=== PATIENT | female | born 1940 | race Caucasian/White ===

== ENCOUNTER 2024-07-04 12:05 | Outpatient (AMB) | payer MEDICARE, SELFPAY ==
--- NOTE | 2024-07-04 12:08 | HO.NEPHOV_ITS ---
Vital Signs 07/04/24 12:09 Height 5 ft 3 in Weight 233 lb 6 oz BMI 41.3 BP 140/60 H Blood Pressure Location Lt brachial Position Sitting Pulse 76 Pulse Source Pulse Oximeter Pulse Oximetry (%) 96 Oxygen Delivery Method Room Air Intake Visit Reasons: CKD Sane Nurse Required: No Accompanied by: Spouse Allergies clindamycin Allergy (Verified 07/04/24 12:12) Hives Medication List - Last Reconciled 07/04/24 by Ramez Bocanegra MD atorvastatin 40 mg PO DAILY diltiazem HCl ER (Tiadylt ER) 240 mg PO DAILY docusate sodium (Colace) 100 mg PO DAILY PRN furosemide 80 mg PO QAM metoprolol tartrate 25 mg PO BID olmesartan 40 mg PO DAILY sennosides (senna) 8.6 mg PO BEDTIME warfarin 2 mg PO DAILY HPI Comments Details: 83-year-old woman with a history of hypertension and lymphedema has been referred for chronic kidney disease. The recent serum creatinine been around 2.5-2.7 mg/dL. She is on high dose of diuretics including Lasix 80 mg and metolazone 2.5 mg. Since then BUN has increased to 80 and creatinine of 2 point 7 mg/dL and hence this referral. She is atrial fibrillation for which she is on metoprolol and Cardizem. No clinical history of congestive heart failure as per patient. She has chronic lymphedema and has been no improvement with the diuretics. She denies any shortness of breath at rest. No nausea or vomiting. No urinary symptoms. [facility] Medical History (Updated 07/04/24 @ 12:28 by Ramez Bocanegra MD) Bilateral knee pain Sinusitis Low blood potassium Secondary hypercoagulable state Lymphedema Atrial fibrillation Hyperlipidemia Hypertension Surgical History (Updated 07/04/24 @ 12:16 by Estella Dwyer MA) Hx of section S/P D&C (status post dilation and curettage) Family History (Updated 07/04/24 @ 12:15 by Estella Dwyer MA) Father Hypertension Social History (Updated 07/04/24 @ 12:15 by Estella Dwyer MA) Alcohol intake: never Patient Tobacco Use Status: Never used Tobacco Physical Exam Vital Signs: Last Vital Signs Pulse 76 07/04/24 12:09 BP 140/60 H 07/04/24 12:09 Pulse Ox 96 07/04/24 12:09 Oxygen Delivery Method Room Air 07/04/24 12:09 BMI result Body Mass Index 41.3 Const General: comfortable; No acute distress Orientation/consciousness: patient oriented x3 Eyes General: appearance normal, both eyes and all related structures Visual Connors: normal visual connors by confrontation Neck Neck: Yes supple and Yes no JVD Resp Effort & Inspection: normal respiratory effort and respiratory effort not decreased Auscultation: rhonchi Cardio Palpation: no palpable S3 and no palpable S4 Heart sounds: no rubs GI Inspection: Yes normal to inspection Palpation (GI): Soft to palpation Percussion: Yes normal to percussion Auscultation: normal bowel sounds General: Yes no CVA tenderness Back/Spine/Pelvis Back: no CVA tenderness Skin General skin exam: no petechiae and no purpura Neuro General: patient oriented x3 and no focal motor deficits Extrem General: No clubbing and Yes edema (Chronic lymphedema both legs) Results Reviewed Results Reviewed: Labs reviewed Nephrology Results: No Data to Display Assessment & Plan Assessment & Plan (1) Hypertension: Code(s): I10 - Essential (primary) hypertension Category: Medical (2) CKD (chronic kidney disease): Code(s): N18.9 - Chronic kidney disease, unspecified Category: Medical Plan Elderly woman with acute kidney injury superimposed on chronic disease. Acute kidney injury is most likely due to hypoperfusion from high dose of diuretics. No evidence of obstructive uropathy. Other possibilities including glomerular nephritis or interstitial disease should be ruled out. She is underlying chronic kidney disease in the setting of hypertension and atrial fibrillation. There could be age related nephron loss as well. Chronic lymphedema both lower extremities. Atrial fibrillation Recommendations Stay on low-sodium diet. Keep furosemide 80 mg once a day. Discontinue metolazone 5 mg Recheck renal panel in 1-2 weeks. Leg elevation while at rest. Urine studies ordered including urine protein creatinine ratio and serum electrophoresis. Further workup will be based on the clinical outcome and the baseline investigations. . Orders: Orders Basic Metabolic Panel 2 Weeks I10 - Essential (primary) hypertension, N18.9 - Chronic kidney disease, unspecified Total Protein Urine Random 2 Weeks I10 - Essential (primary) hypertension, N18.9 - Chronic kidney disease, unspecified Creatinine Urine 2 Weeks I10 - Essential (primary) hypertension, N18.9 - Chronic kidney disease, unspecified Protein Electrophoresis, Serum 2 Weeks I10 - Essential (primary) hypertension, N18.9 - Chronic kidney disease, unspecified Sodium Urine Random 2 Weeks I10 - Essential (primary) hypertension, N18.9 - Chronic kidney disease, unspecified Coding Level of Care Code Est Pt Level 4 (32779) Diagnoses Hypertension I10 CKD (chronic kidney disease) N18.9
[2024-07-04 12:09] VITALS: BP 140/60; PULSE 76; O2SAT 96; BMI 41.3
== END 2024-07-04 12:32 | disposition home or self-care (01) ==
PROVIDERS: PCP Internal Medicine; Referring Provider Internal Medicine; Visit Provider Internal Medicine Hypertension Specialist
DX: I12.9 Hypertensive chronic kidney disease with stage 1 through stage 4 chronic kidney disease, or unspecified chronic kidney disease (principal); N18.9 Chronic kidney disease, unspecified
CPT/HCPCS: 99214

== ENCOUNTER → 2024-07-04 12:05 | Outpatient (BNVA) | payer MEDICARE, SELFPAY | PROVIDERS: PCP Internal Medicine; Referring Provider Internal Medicine; Visit Provider Internal Medicine Hypertension Specialist | DX: I12.9 Hypertensive chronic kidney disease with stage 1 through stage 4 chronic kidney disease, or unspecified chronic kidney disease (principal); N18.9 Chronic kidney disease, unspecified; I48.91 Unspecified atrial fibrillation | CPT/HCPCS: 99212 ==

== ENCOUNTER 2024-07-18 15:56 | Outpatient (AMB) | payer MEDICARE, SELFPAY ==
[2024-07-18 15:55] VITALS: BP 152/74; PULSE 78; O2SAT 98
--- NOTE | 2024-07-18 15:55 | HO.NEPHOV_ITS ---
Vital Signs 07/18/24 15:55 Height 5 ft 3 in BP 152/74 H Blood Pressure Location Lt brachial Position Sitting Pulse 78 Pulse Source Pulse Oximeter Pulse Oximetry (%) 98 Oxygen Delivery Method Room Air Intake Visit Reasons: 2-3 wks follow up/ Conf Vice President Sales Required: No Accompanied by: Spouse Allergies clindamycin Allergy (Verified 07/18/24 15:58) Hives Medication List - Last Reconciled 07/18/24 by Ramez Bocanegra MD atorvastatin 40 mg PO DAILY diltiazem HCl ER (Tiadylt ER) 240 mg PO DAILY docusate sodium (Colace) 100 mg PO DAILY PRN furosemide 80 mg PO QAM metoprolol tartrate 25 mg PO BID olmesartan 40 mg PO DAILY sennosides (senna) 8.6 mg PO BEDTIME warfarin 2 mg PO DAILY HPI Comments Details: 83-year-old woman with a history of hypertension and lymphedema has been referred for chronic kidney disease. The recent serum creatinine been around 2.5-2.7 mg/dL. She is on high dose of diuretics including Lasix 80 mg and metolazone 2.5 mg. Since then BUN has increased to 80 and creatinine of 2 point 7 mg/dL and hence this referral. She is atrial fibrillation for which she is on metoprolol and Cardizem. No clinical history of congestive heart failure as per patient. She has chronic lymphedema and has been no improvement with the diuretics. She denies any shortness of breath at rest. No nausea or vomiting. No urinary symptoms. 07/18/2024. After discontinue Zaroxolyn she feels much better. Recent potassium and creatinine levels were better. No shortness of breath. No change in leg edema [facility] Medical History (Updated 07/04/24 @ 12:28 by Ramez Bocanegra MD) Bilateral knee pain Sinusitis Low blood potassium Secondary hypercoagulable state Lymphedema Atrial fibrillation Hyperlipidemia Hypertension Surgical History Hx of section S/P D&C (status post dilation and curettage) Family History Father Hypertension Social History (Reviewed 07/18/24 @ 15:58 by HUDSON Lopez Alcohol intake: never Patient Tobacco Use Status: Never used Tobacco Physical Exam Vital Signs: Last Vital Signs Pulse 78 07/18/24 15:55 BP 152/74 H 07/18/24 15:55 Pulse Ox 98 07/18/24 15:55 Oxygen Delivery Method Room Air 07/18/24 15:55 Const General: comfortable; No acute distress Orientation/consciousness: patient oriented x3 Eyes General: appearance normal, both eyes and all related structures Visual Connors: normal visual connors by confrontation Neck Neck: Yes supple and Yes no JVD Resp Effort & Inspection: normal respiratory effort and respiratory effort not decreased Auscultation: rhonchi Cardio Palpation: no palpable S3 and no palpable S4 Heart sounds: no rubs GI Inspection: Yes normal to inspection Palpation (GI): Soft to palpation Percussion: Yes normal to percussion Auscultation: normal bowel sounds General: Yes no CVA tenderness Back/Spine/Pelvis Back: no CVA tenderness Skin General skin exam: no petechiae and no purpura Neuro General: patient oriented x3 and no focal motor deficits Extrem General: No clubbing and Yes edema (Chronic lymphedema both legs) Results Reviewed Results Reviewed: Labs reviewed Potassium 3.8 Serum creatinine down to 2.19 from 2.47. BUN is down to 66 from 85. Nephrology Results: No Data to Display Assessment & Plan Assessment & Plan (1) Hypertension: Code(s): I10 - Essential (primary) hypertension Category: Medical (2) CKD (chronic kidney disease): Code(s): N18.9 - Chronic kidney disease, unspecified Category: Medical Plan Elderly woman with acute kidney injury superimposed on chronic disease. Acute kidney injury is most likely due to hypoperfusion from high dose of diuretics. No evidence of obstructive uropathy. Other possibilities including glomerular nephritis or interstitial disease were excluded She is underlying chronic kidney disease in the setting of hypertension and atrial fibrillation. There could be age related nephron loss as well. Chronic lymphedema both lower extremities. Atrial fibrillation Recommendations Stay on low-sodium diet. Decrease furosemide to 60 mg a day. Hold off on using metolazone 5 mg Recheck renal panel in 4 weeks. Leg elevation while at rest. . Orders: Orders Basic Metabolic Panel 4 Weeks N18.9 - Chronic kidney disease, unspecified Medications: New furosemide (Lasix) 60 mg (3 x 20 mg) PO DAILY 90 tabs 2RF Coding Level of Care Code Est Pt Level 4 (40126) Diagnoses Hypertension I10 CKD (chronic kidney disease) N18.9
== END 2024-07-18 16:15 | disposition home or self-care (01) ==
PROVIDERS: PCP Internal Medicine; Visit Provider Internal Medicine Hypertension Specialist
DX: I12.9 Hypertensive chronic kidney disease with stage 1 through stage 4 chronic kidney disease, or unspecified chronic kidney disease (principal); N18.9 Chronic kidney disease, unspecified
CPT/HCPCS: 99214

== ENCOUNTER → 2024-07-18 15:56 | Outpatient (BNVA) | payer MEDICARE, SELFPAY | PROVIDERS: PCP Internal Medicine; Visit Provider Internal Medicine Hypertension Specialist | DX: I12.9 Hypertensive chronic kidney disease with stage 1 through stage 4 chronic kidney disease, or unspecified chronic kidney disease (principal); I89.0 Lymphedema, not elsewhere classified; I48.91 Unspecified atrial fibrillation; N18.9 Chronic kidney disease, unspecified; Z79.899 Other long term (current) drug therapy | CPT/HCPCS: 99212 ==

== ENCOUNTER 2024-08-15 14:17 | Outpatient (AMB) | payer MEDICARE, SELFPAY ==
[2024-08-15 14:09] VITALS: BP 158/68; PULSE 78; O2SAT 100; BMI 41.3
--- NOTE | 2024-08-15 14:09 | HO.NEPHOV ---
Vital Signs 08/15/24 14:09 08/15/24 14:27 Height 5 ft 3 in Weight 233 lb BMI 41.3 BP 158/68 H 130/70 Blood Pressure Location Lt brachial Lt brachial Position Sitting Sitting Pulse 78 Pulse Source Pulse Oximeter Pulse Oximetry (%) 100 Oxygen Delivery Method Room Air Intake Visit Reasons: 1 mon follow up/ Conf Hemotherapist Required: No Accompanied by: Spouse Allergies clindamycin Allergy (Verified 08/15/24 14:11) Hives Medication List - Last Reconciled 08/15/24 by Ramez Bocanegra MD atorvastatin 40 mg PO DAILY diltiazem HCl ER (Tiadylt ER) 240 mg PO DAILY docusate sodium (Colace) 100 mg PO DAILY PRN furosemide (Lasix) 60 mg (3 x 20 mg) PO DAILY metoprolol tartrate 25 mg PO BID olmesartan 40 mg PO DAILY sennosides (senna) 8.6 mg PO BEDTIME warfarin 2 mg PO DAILY HPI Comments Details: 83-year-old woman with a history of hypertension and lymphedema has been referred for chronic kidney disease. The recent serum creatinine been around 2.5-2.7 mg/dL. She is on high dose of diuretics including Lasix 80 mg and metolazone 2.5 mg. Since then BUN has increased to 80 and creatinine of 2 point 7 mg/dL and hence this referral. She is atrial fibrillation for which she is on metoprolol and Cardizem. No clinical history of congestive heart failure as per patient. She has chronic lymphedema and has been no improvement with the diuretics. She denies any shortness of breath at rest. No nausea or vomiting. No urinary symptoms. 07/18/2024. After discontinue Zaroxolyn she feels much better. Recent potassium and creatinine levels were better. No shortness of breath. No change in leg edema 08/15/24 Doing much better [facility] Medical History Bilateral knee pain Sinusitis Low blood potassium Secondary hypercoagulable state Lymphedema Atrial fibrillation Hyperlipidemia Hypertension Surgical History Hx of section S/P D&C (status post dilation and curettage) Family History Father Hypertension Social History Alcohol intake: never Patient Tobacco Use Status: Never used Tobacco Physical Exam Vital Signs: Last Vital Signs Pulse 78 08/15/24 14:09 BP 130/70 08/15/24 14:27 Pulse Ox 100 08/15/24 14:09 Oxygen Delivery Method Room Air 08/15/24 14:09 BMI result Body Mass Index 41.3 Results Reviewed Nephrology Results: No Data to Display Assessment & Plan Assessment & Plan (1) Hypertension: Code(s): I10 - Essential (primary) hypertension Category: Medical (2) CKD (chronic kidney disease): Code(s): N18.9 - Chronic kidney disease, unspecified Category: Medical Plan Elderly woman with acute kidney injury superimposed on chronic disease. Acute kidney injury is most likely due to hypoperfusion from high dose of diuretics. No evidence of obstructive uropathy. Other possibilities including glomerular nephritis or interstitial disease were excluded She is underlying chronic kidney disease in the setting of hypertension and atrial fibrillation. There could be age related nephron loss as well. Chronic lymphedema both lower extremities. Atrial fibrillation Potassium is normal Recommendations Stay on low-sodium diet. Keep furosemide at 60 mg a day. Hold off on using metolazone 5 mg Recheck renal panel in 4 months Leg elevation while at rest. . Orders: Orders Basic Metabolic Panel 4 Months I10 - Essential (primary) hypertension, N18.9 - Chronic kidney disease, unspecified Complete Blood Count Auto Diff 4 Months I10 - Essential (primary) hypertension, N18.9 - Chronic kidney disease, unspecified Coding Level of Care Code Est Pt Level 4 (64898) Diagnoses Hypertension I10 CKD (chronic kidney disease) N18.9
[2024-08-15 14:27] VITALS: BP 130/70
== END 2024-08-15 14:35 | disposition home or self-care (01) ==
PROVIDERS: PCP Internal Medicine; Visit Provider Internal Medicine Hypertension Specialist
DX: I12.9 Hypertensive chronic kidney disease with stage 1 through stage 4 chronic kidney disease, or unspecified chronic kidney disease (principal); N18.9 Chronic kidney disease, unspecified
CPT/HCPCS: 99214

== ENCOUNTER → 2024-08-15 14:17 | Outpatient (BNVA) | payer MEDICARE, SELFPAY | PROVIDERS: PCP Internal Medicine; Visit Provider Internal Medicine Hypertension Specialist | DX: I12.9 Hypertensive chronic kidney disease with stage 1 through stage 4 chronic kidney disease, or unspecified chronic kidney disease (principal); N18.9 Chronic kidney disease, unspecified; I89.0 Lymphedema, not elsewhere classified; I48.91 Unspecified atrial fibrillation; Z79.899 Other long term (current) drug therapy | CPT/HCPCS: 99212 ==

== ENCOUNTER 2025-01-30 15:13 | Outpatient (AMB) | payer MEDICARE, SELFPAY ==
--- NOTE | 2025-01-30 15:12 | HO.NEPHOV_ITS ---
Vital Signs 01/30/25 15:13 Height 5 ft 3 in BP 140/62 H Blood Pressure Location Lt radial Position Sitting Pulse 61 Pulse Source Pulse Oximeter Pulse Oximetry (%) 98 Oxygen Delivery Method Room Air Intake Visit Reasons: CKD/4 Month Follow Up/ Conf Canvas Baster Jumpbasting Required: No Accompanied by: Spouse Allergies clindamycin Allergy (Verified 01/30/25 15:15) Hives Medication List - Last Reconciled 01/30/25 by Ramez Bocanegra MD atorvastatin 40 mg PO DAILY diltiazem HCl ER (Tiadylt ER) 240 mg PO DAILY docusate sodium (Colace) 100 mg PO DAILY PRN furosemide 80 mg PO DAILY metoprolol tartrate 25 mg PO BID olmesartan 40 mg PO DAILY sennosides (senna) 8.6 mg PO BEDTIME warfarin 2 mg PO DAILY warfarin mg PO HPI Comments Details: 83-year-old woman with a history of hypertension and lymphedema has been referred for chronic kidney disease. The recent serum creatinine been around 2.5-2.7 mg/dL. She is on high dose of diuretics including Lasix 80 mg and metolazone 2.5 mg. Since then BUN has increased to 80 and creatinine of 2 point 7 mg/dL and hence this referral. She is atrial fibrillation for which she is on metoprolol and Cardizem. No clinical history of congestive heart failure as per patient. She has chronic lymphedema and has been no improvement with the diuretics. She denies any shortness of breath at rest. No nausea or vomiting. No urinary symptoms. 07/18/2024. After discontinue Zaroxolyn she feels much better. Recent potassium and creatinine levels were better. No shortness of breath. No change in leg edema 08/15/24;Doing much better 01/30/25 : Now on Lasix 60 mg QD Edema has increased a little; No weight data available. [facility] Medical History Bilateral knee pain Sinusitis Low blood potassium Secondary hypercoagulable state Lymphedema Atrial fibrillation Hyperlipidemia Hypertension Surgical History Hx of section S/P D&C (status post dilation and curettage) Family History Father Hypertension Social History Alcohol intake: never Patient Tobacco Use Status: Never used Tobacco Physical Exam Vital Signs: Last Vital Signs Pulse 61 01/30/25 15:13 BP 140/62 H 01/30/25 15:13 Pulse Ox 98 01/30/25 15:13 Oxygen Delivery Method Room Air 01/30/25 15:13 Const General: comfortable; No acute distress Orientation/consciousness: patient oriented x3 Eyes General: appearance normal, both eyes and all related structures Visual Connors: normal visual connors by confrontation Neck Neck: Yes supple and Yes no JVD Resp Effort & Inspection: normal respiratory effort and respiratory effort not decreased Auscultation: rhonchi Cardio Palpation: no palpable S3 and no palpable S4 Heart sounds: no rubs GI Inspection: Yes normal to inspection Palpation (GI): Soft to palpation Percussion: Yes normal to percussion Auscultation: normal bowel sounds General: Yes no CVA tenderness Back/Spine/Pelvis Back: no CVA tenderness Skin General skin exam: no petechiae and no purpura Neuro General: patient oriented x3 and no focal motor deficits Extrem General: No clubbing and Yes edema (Chronic lymphedema both legs) Results Reviewed Results Reviewed: January 2025 Cr 1.3 eGFR 39 ml Nephrology Results: No Data to Display Assessment & Plan Assessment & Plan (1) Hypertension: Code(s): I10 - Essential (primary) hypertension Category: Medical (2) CKD (chronic kidney disease): Code(s): N18.9 - Chronic kidney disease, unspecified Category: Medical Plan Elderly woman with acute kidney injury superimposed on chronic disease. Acute kidney injury is most likely due to hypoperfusion from high dose of diuretics. No evidence of obstructive uropathy. Other possibilities including glomerular nephritis or interstitial disease were excluded She is underlying chronic kidney disease in the setting of hypertension and atrial fibrillation. There could be age related nephron loss as well. Creatinine has improved Down to 1.3 mg/dL Chronic lymphedema both lower extremities. Atrial fibrillation Potassium is normal Recommendations : Stay on low-sodium diet. Increase furosemide 80 mg a day. Continue to hold off on using metolazone 5 mg Recheck renal panel in 3-4 months Leg elevation while at rest. . Medications: Changed From furosemide 60 mg (3 x 20 mg) PO DAILY 270 tabs 0RF To furosemide 80 mg PO DAILY Coding Level of Care Code Est Pt Level 4 (66749) Diagnoses Hypertension I10 CKD (chronic kidney disease) N18.9
[2025-01-30 15:13] VITALS: BP 140/62; PULSE 61; O2SAT 98
--- OUTSIDE RECORDS SUMMARY | 2025-01-30 18:14 | XMS_ITS | Encounter Summary ---
Author Organization [facility] [place] [address] Care Team Providers Care Stockroom Associate Name Role Phone Chaparro Mallory MD Primary Care Provider [phone] Encounter Details Date Type Department Care Team (Late st Contact Info) Description 09/06/2024 1:00 PM EDT Hospital Encounter TH HISTORIC ENCOUNTERS EASTERN CONVERSION ONLY Jose Antonio Coyle MD [address] [facility] [address] [place] [address] Social History Tobacco Use Types Packs/Day Years Used Date Smoking Tobacco: Never Smokeless Tobacco: Never Alcohol Use Standard [...] 1:49 PM Encounter Date: 09/06/2024 Status: Signed Transonic Engineer: Jose Antonio Coyle MD (Physician) Cardiology Attending Outpatient Progress Note-09/06/2024 [facility] [place] Proof Coins Inspector-Leonides Patient Name:Khadijah James Patient : 1940 Referring MD:Chapraro Mallory MD Interval History: The patient is [...] and anticoagulation are recommended, as with any [id number] score of 2 or more.The patient remains asymptomatic at present and will be followed empirically and remain on the same medicines for now. She is on warfarin for anticoagulation. I will plan to repeat her echocardiogram next year in the spring time and see her shortly after. ?? [id number] patient has presumed CAD by risk equivalents [...] under 130/80. ?? Hyperlipidemia+ presumed CAD (E78.0)-Appropriate intermediate frame tender diet and regular exercise are advised. We will obtain and review her most recent lipids. ?? Chronic Leg Edema-on furosemide only (R60.0)- The patient has chronic leg edema that is unchanged and she will continue on 60 mg of Lasix daily. Jose Antonio Coyle MD [facility] 09/06/2024 1:43 PM Office [phone] Pager [phone] Current Outpatient Medications Medication Sig Dispense Refill [...] Procedure: D&C; Surgeon: Olu King MD; Location: [facility] SUR[facility]ERY; Service: Gynecology; Laterality: N/A; Social History [...] Care Team (Late st Contact Info) Description 03/06/2025 3:45 PM EDT Ancillary Procedure [facility] [address] [phone] 03/06/2025 4:30 PM EDT Office Visit [facility] [address] [phone] Jose Antonio Coyle MD [address] [facility] [address] [place] [address] documented as of this encounter Visit Diagnoses Not on filedocumented in this encounter Care Teams Stockroom Associate Relationship Specialty Start Date End Date Chaparro Mallory MD [address] [place] [address] PCP - General Internal Medicine 09/13/14 documented as of this encounter
--- OUTSIDE RECORDS SUMMARY | 2025-01-30 18:14 | XMS_ITS | Clinical Summary ---
Author Organization [facility] Address [address] [place] [address] Care Team Providers Care Plugman Name Role Phone Chaparro Mallory MD Primary Care Provider [phone] Allergies Active Allergy Reactions Criticality Noted Date Comments Clindamycin/Lincomycin Swelling 09/13/2014 Medications Medication Sig Dispensed Refills Start Date End Date Status atorvastatin (LIPITOR) tablet 40 mg 1 tablet (40 mg total) daily. 0 06/24/2016 Active metoprolol tartrate (LOPRESSOR) 50 MG tablet 0.5 tablets (25 mg total) 2 (two) times a day. 0 05/11/2016 Active olmesartan (BENICAR) tablet 40 mg Take 1 tablet (40 mg total) by mouth daily. 0 Active senna (SENOKOT) 8.6 MG tablet Take 1 tablet by mouth daily. 30 tablet 0 09/08/2018 Active warfarin (COUMADIN) 2 MG tablet Take 1 tablet (2 mg total) by mouth daily. 0 Active dilTIAZem (TIAZAC) 240 MG 24 hr capsule Take 1 capsule (240 mg total) by mouth daily. 0 10/26/2020 Active furosemide (LASIX) 20 MG tablet Take 3 tablets (60 mg total) by mouth 2 (two) times a day. 0 Active Active Problems Problem Noted Date Diagnosed Date Primary osteoarthritis of right knee 08/20/2021 Contusion of right knee 08/20/2021 Postmenopausal bleeding 09/04/2018 Essential hypertension 08/30/2017 Class 3 obesity due to exces s calories without serious comorbidity with body mass index (BMI) of 40.0 to 44.9 in adult 08/30/2017 WHEELER (dyspnea on exertion) 02/23/2017 Non-rheumatic mitral regurgitation 10/27/2016 Atrial fibrillation 07/06/2016 Atherosclerosis of [place] ronary artery of [place] heart without angina pectoris 07/06/2016 Shortness of breath dyspnea 07/06/2016 Persistent atrial fibrillation 03/16/2016 Hyperlipemia 03/16/2016 Essential hypertension, benign 03/16/2016 Abnormal EKG 03/16/2016 Dyspnea 03/16/2016 Obesity 03/16/2016 Bilateral leg edema 03/16/2016 Resolved Problems Problem Noted Date Diagnosed Date Resolved Date V-tach 09/05/2018 09/07/2018 Acute blood loss anemia 09/04/201811/2017 Symptomatic anemia 09/04/2018 8 Family History Medical History Relation Name Comments Heart disease Father Hypertension Father Relation Name Status Comments Father Mother Alive Social History Tobacco Use Types Packs/Day Years Used Date Smoking Tobacco: Never Smokeless Tobacco: Never Tobacco Cessation:Counseling Given: Not Answered Alcohol Use Standard Drinks/Week Comments No 0 (1 standard drink = 0.6 oz pur e alcohol) Sex and Gender Information Value Date Recorded Sex Assigned at Not on file Gender Identity Not on file Sexual Orientation Not on file Job Start Date Occupation Industry Not on file Not on file Not on file Last Filed Vital Signs Vital Sign Reading Time Taken Comments Blood Pressure 144/76 09/06/2024 1:14 PM EDT Pulse 76 09/06/2024 1:14 PM EDT Temperature 36 ??C (96.8 ??F) 04/06/2022 4:02 PM EDT Respiratory Rate 16 09/07/2018 8:00 AM EDT Oxygen Saturation 98% 09/06/2024 1:14 PM EDT Inhaled Oxygen Concentration - - Weight 111.6 kg (246 lb) 03/26/2024 3:15 PM EDT pt reported Height 160 cm (5' 3 ) 03/26/2024 3:15 PM EDT Body Mass Index 43.58 03/26/2024 3:15 PM EDT Plan of Treatment Health Maintenance Due Date Last Done Comments COVID-19 Vaccine (#1) 02/10/1941 Pneumococcal Vaccine (1 of 2 - PCV) 1947 Depression Screening 1953 BMI Counseling 1959 Preventative Health Evaluation 1959 DTap / Tdap / Td (1 - Tdap) 1960 Shingrix-Zoster Vaccine (1 of 2) 1991 Fall Risk Assessment 2006 Osteoporosis Screening (DEXA Scan) 2006 RSV Adult > 60+ Yrs or Pregn ant (1 - 1-dose 75+ series) 2016 Influenza Vaccine (#1) 2024 Hepatitis B Vaccines Aged Out No long er eligible based on patient's age to complete this topic RSV Ped < 20 months Aged Out No longe r eligible based on patient's age to complete this topic Advance Directives For more information, please contact: [phone] Latest Code Status on File Code Status Date Activated Date Inactivated Comments Full Code 09/06/2018 2:03 PM 09/07/2018 11:41 PM Thi s code status was ascertained in the following way: discussion with patient . Code Status History Code Status Date Activated Date Inactivated Comments Full Code 09/04/2018 5:44 PM 09/06/2018 2:03 PM Thi s code status was ascertained in the following way: discussion with patient . Care Teams Plugman Relationship Specialty Start Date End Date Chaparro Mallory MD [address] [place] [address] PCP - General Internal Medicine 09/13/14
--- OUTSIDE RECORDS SUMMARY | 2025-01-30 18:14 | XMS_ITS | Clinical Summary ---
Author Organization [facility] Address [address] [place] [address] Care Team Providers Care Ostomy Nurse Name Role Phone Unknown Primary Care Provider [phone] Chaparro Mallory MD Unavailable [phone] Allergies Active Allergy Reactions Criticality Noted Date Comments Clindamycin/Lincomycin Swelling Medium 09/13/2014 Medications Medication Sig Dispensed Refills Start Date End Date Status atorvastatin (LIPITOR) 40 MG tablet Take 40 mg by mouth daily. 11/02/2020 Active diltiazem (TIAZAC) 240 MG 24 hr capsule Take by mouth daily. 10/26/2020 Active furosemide (LASIX) 20 MG tablet 11/24/2020 Active metoPROLOL TARTRATE (LOPRESSOR) 25 MG tablet Take 25 mg by mouth 2 (two) times a day. 11/22/2020 Active olmesartan (BENICAR) 40 MG tablet Take 40 mg by mouth daily. 11/03/2020 Active warfarin (COUMADIN) 2 MG tablet Take 2 mg by mouth. Active warfarin (COUMADIN) 1 MG tablet Take 1 mg by mouth daily. 10/26/2020 Active aspirin enteric coated (ECOTRIN LOW STRENGTH) 81 MG EC tablet Take 81 mg by mouth daily. Active Active Problems No known active problems Social History Tobacco Use Types Packs/Day Years Used Date Smoking Tobacco: Never Smokeless Tobacco: Never Alcohol Use Standard Drinks/Week Comments Not Currently 0 (1 standard drink = 0.6 oz pur e alcohol) Sex and Gender Information Value Date Recorded Sex Assigned at Not on file Gender Identity Not on file Sexual Orientation Not on file Last Filed Vital Signs Vital Sign Reading Time Taken Comments Blood Pressure 190/63 01/03/2021 5:29 PM EST Pulse 70 01/03/2021 5:22 PM EST Temperature 36.7 ??C (98 ??F) 01/03/2021 5:22 PM EST Respiratory Rate 16 01/03/2021 5:22 PM EST Oxygen Saturation 99% 01/03/2021 5:22 PM EST Inhaled Oxygen Concentration - - Weight 112 kg (246 lb 9.6 oz) 09/14/2023 9:14 AM EST Height 160 cm (5' 3 ) 09/14/2023 9:14 AM EST Body Mass Index 43.68 09/14/2023 9:14 AM EST Plan of Treatment Health Maintenance Due Date Last Done Comments DTaP/Tdap/Td Vaccines (1 - Tdap) 1960 Pneumococcal Vaccines 50+ (1 of 1 - PCV) 1991 Zoster (Shingles) Vaccine (1 of 2) 1991 DXA Bone Density (Females,Ages 65 and older) 2006 RSV Vaccine 60 years and older and Patients (1 - 1-dose 75+ series) 2016 Influenza Vaccine 06/07/2024 COVID-19 Vaccine (4 - 2023-2 5 season) 2024 11/04/2021, 12/25/2020, 12/04/2020 Hepatitis B Vaccines Aged Out No long er eligible based on patient's age to complete this topic Goals Goal Patient Goal Type Associated Problems Recent Progress Patient-Stated? Author OT LTG 1 Occupational Therapy Eveline Oshea, STACY Note: Pt will be measured and fit for new day and nighttime compression garments, and will be I with wear and care. Pt will be I with home program including use of compression garments, skin care, and exercise routine. Care Teams Ostomy Nurse Relationship Specialty Start Date End Date Unknown Unknow Provider Address PCP - General 12/09/20 Chaparro Mallory MD [address] [place] [id number] PCP - APNCT [employer] Attributed 11/07/22
--- OUTSIDE RECORDS SUMMARY | 2025-01-30 18:14 | XMS_ITS ---
Author Name [facility] Unknown History of Medication Use Medication Directions Dispensed Refills Start Date End Date Stat aspirin enteric coated (ECOTRIN LOW STRENGTH) 81 MG EC tablet Take 81 mg by mouth daily. active atorvastatin (LIPITOR) 40 MG tablet Take 40 mg by mouth daily. 11/02/2020 active warfarin (COUMADIN) 2 MG tablet Take 1 tablet (2 mg total) by mouth daily. active dilTIAZem (TIAZAC) 240 MG 24 hr capsule Take 1 capsule (240 mg total) by mouth daily. 10/26/2020 active olmesartan (BENICAR) tablet 40 mg Take 1 tablet (40 mg total) by mouth daily. active olmesartan (BENICAR) tablet 40 mg Take 1 tablet (40 mg total) by mouth daily. active dilTIAZem (TIAZAC) 240 MG 24 hr capsule Take 1 capsule (240 mg total) by mouth daily. 10/26/2020 active furosemide (Lasix) 80 MG tablet Take 1 tablet (80 mg total) by mouth 2 (two) times a day. 03/16/2023 active diltiazem (TIAZAC) 240 MG 24 hr capsule Take by mouth daily. 10/26/2020 active Problems Problem Status Onset Date Problem Type Date of Resolution Source Lymphedema active [facility] Atrial fibrillation active 2016-06-09 0 ProblemAct [facility] Class 3 obesity due to excess calories without serious comorbidity with body mass index (BMI) of 40.0 to 44.9 in adult active 2017-08-08 4 ProblemAct [facility] Contusion of right knee active 2021-08-07 4 ProblemAct [facility] Hyperlipemia active 2016-03-07 0 ProblemAct [facility] Bilateral leg edema active 2016-03-07 0 ProblemAct [facility] WHEELER (dyspnea on exertion) active 2017-02-05 9 ProblemAct [facility] Obesity active 2016-03-07 0 ProblemAct [facility] Dyspnea active 2016-03-07 0 ProblemAct [facility] Atherosclerosis of [place] coronary artery of [place] heart without angina pectoris active 2016-06-09 0 ProblemAct [facility] Pure hypercholesterolemia active EncounterDiagnosisAct [facility] Non-rheumatic mitral regurgitation active 2016-10-08 1 ProblemAct [facility] Chronic atrial fibrillation (HCC) active EncounterDiagnosisAct [facility] Primary osteoarthritis of right knee active 2021-08-07 4 ProblemAct [facility] Essential hypertension active 2017-08-08 4 ProblemAct [facility] Abnormal EKG active 2016-03-07 0 ProblemAct [facility] Postmenopausal bleeding active 2018-08-08 9 ProblemAct [facility] Persistent atrial fibrillation active 2016-03-07 0 ProblemAct [facility] LOKI (obstructive sleep apnea) active EncounterDiagnosisAct [facility] Encounters Encounter Type Encounter Reason Primary Diagnosis Location Date Ambulatory Lymphedema, not elsewhere classified Lymphedema, not elsewhere classified [facility] 04/27/2024 Ambulatory Other symptoms and signs involving the musculoskeletal system Other symptoms and signs involving the musculoskeletal system [facility] 02/17/2024 Ambulatory Lymphedema, not elsewhere classified Lymphedema, not elsewhere classified [facility] 10/14/2023 Ambulatory [facility] 10/13/2023 Ambulatory [facility] 10/11/2023 Ambulatory [facility] 10/10/2023 Ambulatory Lymphedema, not elsewhere classified Lymphedema, not elsewhere classified [facility] 10/07/2023 Ambulatory [facility] 10/06/2023 Ambulatory [facility] 10/05/2023 Ambulatory [facility] 10/04/2023 Ambulatory [facility] 10/03/2023 Ambulatory Lymphedema, not elsewhere classified Lymphedema, not elsewhere classified [facility] 09/14/2023 Care Team Organization Name Specialty Phone Email Start Date End [facility] te [facility] 02/22 [facility] 0 02/20/2024 [facility] 09/14/2023 10/14/2023 [facility] 09/14/2023 01/23/2025
--- OUTSIDE RECORDS SUMMARY | 2025-01-30 18:14 | XMS_ITS | Clinical Summary ---
Author Organization [facility] Address [address] [place] [address] Care Team Providers Care Design Coordinator Name Role Phone Chaparro Mallory MD Primary Care Provider [phone] Allergies Active Allergy Reactions Criticality Noted Date Comments Clindamycin Swelling 09/13/2014 Medications atorvastatin (LIPITOR) 40 mg tablet 1 tablet (40 mg total) daily. 06/24/2016 Active dilTIAZem (TIAZAC) 240 mg 24 hr capsule Take by mouth. 10/26/2020 Active furosemide (LASIX) 20 mg tablet Take by mouth. Active metoprolol tartrate (LOPRESSOR) 50 mg tablet 0.5 tablets (25 mg total) 2 (two) times a day. 05/11/2016 Active olmesartan (BENICAR) 40 mg tablet Take 1 tablet (40 mg total) by mouth 1 (one) time each day. Active senna (SENOKOT) 8.6 mg tablet Take 1 tablet (8.6 mg total) by mouth 1 (one) time each day. 09/08/2018 Active warfarin (COUMADIN) 2 mg tablet Take 1 tablet (2 mg total) by mouth. Active Active Problems Problem Noted Date Diagnosed Date Contusion of right knee 08/20/2021 Postmenopausal bleeding 09/04/2018 Class 3 severe obesity due t o excess calories without serious comorbidity with body mass index (BMI) of 40.0 to 44.9 in adult 08/30/2017 WHEELER (dyspnea on exertion) 02/23/2017 Non-rheumatic mitral regurgitation 10/27/2016 Atherosclerosis of [place] ronary artery of [place] heart without angina pectoris 07/06/2016 Shortness of breath 07/06/2016 Abnormal EKG 03/16/2016 Bilateral leg edema 03/16/2016 Dyspnea 03/16/2016 Essential hypertension, benign 03/16/2016 Hyperlipemia 03/16/2016 Obesity 03/16/2016 Persistent atrial fibrillation 03/16/2016 Surgical History Surgery Date Site/Laterality Comments SECTION PROCEDURE: SECTION DILATION AND CURETTAGE OF UTERUS 09/06/2018 N/A PROCEDURE:DILATION AND CURETTAGE OF UTERUS;COMMENT:Procedure: D&C; Surgeon: Olu King MD; Location: [facility]; Service: Gynecology; Laterality: N/A; Medical History Medical History Date Comments Hypertension DX:Hypertension Environmental allergies DX:Envir onmental allergies Abnormal ECG DX:Abnormal ECG Hyperlipidemia DX:Hyperlipidemi a Atrial fibrillation (CMS/HCC) 03/2016 DX :Atrial fibrillation (HCC);COMMENT:new; on AC by PCP; 3 mg daily Obesity DX:Obesity Dyspnea DX:Dyspnea Hx of cardiovascular stress test 2015 DX:Hx of cardiovascular stress test;COMMENT:nl mibi Hx of echocardiogram 10/2016 DX:Hx of ec hocardiogram;COMMENT:nl ef; diast dysfxn, mild to mod MR Mitral regurgitation 10/2016 DX:Mitral r egurgitation;COMMENT:mild to mod Arthritis DX:Arthritis Family History Medical History Relation Name Comments [...] on file Sexual Orientation Not on file Obstetrics History Last Filed Vital Signs Vital Sign Reading [...] 03/26/2024 3:15 PM EDT Plan of Treatment Upcoming Encounters Date Type Department Care Team (Late st Contact Info) Description 03/06/2025 3:45 PM EDT Ancillary Procedure [facility] [place] [address] [facility] [address] [place] [phone] 03/06/2025 4:30 PM EDT Office Visit [facility] [place] [address] [facility] [address] [place] [phone] Jose Antonio Coyle MD [address] [facility] [address] [place] [address] Health Maintenance Due Date Last Done Comments DTaP,Tdap,and Td Vaccines (1 - Tdap) 1960 Pneumococcal Vaccine: 50+ Years (1 of 2 - PCV) 1960 Zoster Vaccines (1 of 2) 1991 RSV Immunization Patients 60+ Years Old (1 - 1-dose 75+ series) 2016 Depression Screening 10/10/2022 Falls Risk Assessment 10/10/2022 Osteoporosis Screening (Bone Density Screening) 10/10/2022 Social Influencers of Health Screening 10/10/2022 Hypertension/CHF/CAD Annual BMP Blood Test 10/14/2022 02/13/2021, 09/07/2018, 09/06/2018, Additional history exists COVID-19 Vaccine ( season) 2024 Influenza Vaccine (#1) 2024 Cholesterol Screening (Lipid Panel) 10/01/2025 10/01/2020 HIB Vaccines Aged Out No longer eligi ble based on patient's age to complete this topic HPV Vaccines Aged Out No longer eligi ble based on patient's age to complete this topic Hepatitis A Vaccines Aged Out No long er eligible based on patient's age to complete this topic Hepatitis B Vaccines Aged Out No long er eligible based on patient's age to complete this topic IPV Vaccines Aged Out No longer eligi ble based on patient's age to complete this topic MMR Vaccines Aged Out No longer eligi ble based on patient's age to complete this topic Meningococcal ACWY Vaccine Aged Out N o longer eligible based on patient's age to complete this topic Meningococcal B Vacine Aged Out No lo nger eligible based on patient's age to complete this topic RSV Immunization Patients Under 20 months Aged Out No longer eligible based on patient's age to complete this topic Varicella Vaccines Aged Out No longer eligible based on patient's age to complete this topic Procedures Procedure Name Priority Date/Time Associated Diagnosis Comments ANNUAL BMP BLOOD TEST Routine 02/13/2021 LIPID PANEL Routine 10/01/2020 from Last 3 Months or Most Recently Relevant to Health Maintenance Results * Annual BMP Blood Test (02/13/2021) Annual BMP Blood Test abstracted Historical Provider HEALTH MAINTENANCE Final Result * (ABNORMAL) Lipid panel (10/01/2020) LDL/HDL Ratio 3 <=5 Triglycerides 154(A) 0 - 150 mg/dL Cholesterol 127 0 - 200 mg/dL HDL 50 >=50 mg/dL LDL Cholesterol 53 0 - 100 mg/dL Blood Venous blood specimen / Unknown Historical Provider LAB BLOOD ORDERABLES Krystal l Result from Last 3 Months or Most Recently Relevant to Health Maintenance Care Teams Design Coordinator Relationship Specialty Start Date End Date Chaparro Mallory MD [address] [place] [phone] PCP - General Internal Medicine 09/13/14
== END 2025-01-30 15:33 | disposition home or self-care (01) ==
LOC: HO.HKAE 15:14
PROVIDERS: PCP Internal Medicine; Visit Provider Internal Medicine Hypertension Specialist
DX: I12.9 Hypertensive chronic kidney disease with stage 1 through stage 4 chronic kidney disease, or unspecified chronic kidney disease (principal); N18.9 Chronic kidney disease, unspecified
CPT/HCPCS: 99214

== ENCOUNTER → 2025-01-30 15:13 | Outpatient (BNVA) | payer MEDICARE, SELFPAY | PROVIDERS: PCP Internal Medicine; Visit Provider Internal Medicine Hypertension Specialist | DX: I12.9 Hypertensive chronic kidney disease with stage 1 through stage 4 chronic kidney disease, or unspecified chronic kidney disease (principal); N18.9 Chronic kidney disease, unspecified | CPT/HCPCS: 99212 ==

== ENCOUNTER 2025-06-05 14:38 | Outpatient (AMB) | payer MEDICARE, SELFPAY ==
[2025-06-05 14:42] VITALS: BP 126/80; PULSE 63; O2SAT 96
--- NOTE | 2025-06-05 14:42 | HO.NEPHOV_ITS ---
Vital Signs 06/05/25 14:42 Height 5 ft 3 in BP 126/80 Blood Pressure Location Lt radial Position Sitting Pulse 63 Pulse Source Pulse Oximeter Pulse Oximetry (%) 96 Oxygen Delivery Method Room Air Intake Visit Reasons: 4mon follow-up Warehouse Operations Associate Required: No Accompanied by: Spouse Allergies clindamycin Allergy (Verified 06/05/25 14:43) Hives Medication List - Last Reconciled 06/05/25 by Ramez Bocanegra MD atorvastatin 40 mg PO DAILY diltiazem HCl ER (Tiadylt ER) 240 mg PO DAILY docusate sodium (Colace) 100 mg PO DAILY PRN furosemide 80 mg (4 x 20 mg) PO DAILY metoprolol tartrate 25 mg PO BID olmesartan 40 mg PO DAILY sennosides (senna) 8.6 mg PO BEDTIME PRN warfarin 2 mg PO DAILY warfarin mg PO HPI Comments Details: 83-year-old woman with a history of hypertension and lymphedema has been referred for chronic kidney disease. The recent serum creatinine been around 2.5-2.7 mg/dL. She is on high dose of diuretics including Lasix 80 mg and metolazone 2.5 mg. Since then BUN has increased to 80 and creatinine of 2 point 7 mg/dL and hence this referral. She is atrial fibrillation for which she is on metoprolol and Cardizem. No clinical history of congestive heart failure as per patient. She has chronic lymphedema and has been no improvement with the diuretics. She denies any shortness of breath at rest. No nausea or vomiting. No urinary symptoms. 07/18/2024. After discontinue Zaroxolyn she feels much better. Recent potassium and creatinine levels were better. No shortness of breath. No change in leg edema 08/15/24;Doing much better 01/30/25 : Now on Lasix 60 mg QD Edema has increased a little; No weight data available. 06/05/25 Now on Lasix to 80 mg Still ahs edema PFSH Medical History Bilateral knee pain Sinusitis Low blood potassium Secondary hypercoagulable state Lymphedema Atrial fibrillation Hyperlipidemia Hypertension Surgical History Hx of section S/P D&C (status post dilation and curettage) Family History Father Hypertension Social History Alcohol intake: never Patient Tobacco Use Status: Never used Tobacco Physical Exam Vital Signs: Last Vital Signs Pulse 63 06/05/25 14:42 BP 126/80 06/05/25 14:42 Pulse Ox 96 06/05/25 14:42 Oxygen Delivery Method Room Air 06/05/25 14:42 Assessment & Plan Assessment & Plan (1) Hypertension: Code(s): I10 - Essential (primary) hypertension Category: Medical (2) CKD (chronic kidney disease): Code(s): N18.9 - Chronic kidney disease, unspecified Category: Medical Plan Elderly woman with acute kidney injury superimposed on chronic disease. Acute kidney injury is most likely due to hypoperfusion from high dose of diuretics. No evidence of obstructive uropathy. Other possibilities including glomerular nephritis or interstitial disease were excluded She is underlying chronic kidney disease in the setting of hypertension and atrial fibrillation. There could be age related nephron loss as well. Creatinine has improved Down to 1.3 mg/dL Chronic lymphedema both lower extremities. Atrial fibrillation Potassium is normal Recommendations : Stay on low-sodium diet. Keep furosemide 80 mg a day and watch Creatinine Continue to hold off on using metolazone 5 mg Recheck renal panel in 4 months Leg elevation while at rest. . Orders: Orders Basic Metabolic Panel 4 Months I10 - Essential (primary) hypertension, N18.9 - Chronic kidney disease, unspecified Complete Blood Count no Diff 4 Months I10 - Essential (primary) hypertension, N18.9 - Chronic kidney disease, unspecified Coding Level of Care Code Est Pt Level 4 (03758) Diagnoses Hypertension I10 CKD (chronic kidney disease) N18.9
--- OUTSIDE RECORDS SUMMARY | 2025-06-05 15:19 | XMS_ITS ---
Author Name [facility] Organization Unknown History of Medication Use Medication Directions Dispensed Refills Start Date End Date Stat us furosemide (Lasix) 80 MG tablet Take 1 tablet (80 mg total) by mouth 2 (two) times a day. 03/16/2023 active atorvastatin (LIPITOR) 40 MG tablet Take 40 mg by mouth daily. 11/02/2020 active diltiazem (TIAZAC) 240 MG 24 hr capsule Take by mouth daily. 10/26/2020 active dilTIAZem (TIAZAC) 240 MG 24 hr capsule Take 1 capsule (240 mg total) by mouth daily. 10/26/2020 active dilTIAZem (TIAZAC) 240 MG 24 hr capsule Take 1 capsule (240 mg total) by mouth daily. 10/26/2020 active aspirin enteric coated (ECOTRIN LOW STRENGTH) 81 MG EC tablet Take 81 mg by mouth daily. active olmesartan (BENICAR) tablet 40 mg Take 1 tablet (40 mg total) by mouth daily. active olmesartan (BENICAR) tablet 40 mg Take 1 tablet (40 mg total) by mouth daily. active warfarin (COUMADIN) 2 MG tablet Take 1 tablet (2 mg total) by mouth daily. active Allergies Allergen Reaction Severity Comment Documented Date Source Statu s CLINDAMYCIN/LINCOMYCIN SWELLING 09/13/2014 CCT active Problems Problem Status Onset Date Problem Type Date of Resolution Source Primary osteoarthritis of right knee active 2021-08-07 4 ProblemAct [facility] LOKI (obstructive sleep apnea) active EncounterDiagnosisAct CTTHNE MG Hyperlipemia active 2016-03-07 0 ProblemAct [facility] Obesity active 2016-03-07 0 ProblemAct [facility] Persistent atrial fibrillation active 2016-03-07 0 ProblemAct [facility] WHEELER (dyspnea on exertion) active 2017-02-05 9 ProblemAct [facility] Contusion of right knee active 2021-08-07 4 ProblemAct [facility]G Atherosclerosis of [place] coronary artery of [place] heart without angina pectoris active 2016-06-09 0 ProblemAct [facility] Non-rheumatic mitral regurgitation active 2016-10-08 1 ProblemAct [facility] Dyspnea active 2016-03-07 0 ProblemAct [facility] Chronic atrial fibrillation (HCC) active EncounterDiagnosisAct [facility]NEMG Essential hypertension active 2017-08-08 4 ProblemAct [facility] Abnormal EKG active 2016-03-07 0 ProblemAct [facility] Pure hypercholesterolemia active EncounterDiagnosisAct [facility] Atrial fibrillation active 2016-06-09 0 ProblemAct [facility] Class 3 obesity due to excess calories without serious comorbidity with body mass index (BMI) of 40.0 to 44.9 in adult active 2017-08-08 4 ProblemAct [facility] Bilateral leg edema active 2016-03-07 0 ProblemAct [facility] Postmenopausal bleeding active 2018-08-08 9 ProblemAct [facility] Lymphedema active EncounterDiagnosisAct CCT Encounters Encounter Type Encounter Reason Primary Diagnosis Location Date Ambulatory Lymphedema, not elsewhere classified Lymphedema, not elsewhere classified [facility] 04/27/2024 Ambulatory Other symptoms and signs involving the musculoskeletal system Other symptoms and signs involving the musculoskeletal system [facility] 02/17/2024 Ambulatory Lymphedema, not elsewhere classified Lymphedema, not elsewhere classified [facility] 10/14/2023 Ambulatory [facility] 10/13/2023 Ambulatory [facility] 10/11/2023 Ambulatory [facility] 10/10/2023 Ambulatory Lymphedema, not elsewhere classified Lymphedema, not elsewhere classified [facility] 10/07/2023 Ambulatory [facility] 10/06/2023 Ambulatory [facility] 10/05/2023 Ambulatory [facility] 10/04/2023 Ambulatory [facility] 10/03/2023 Ambulatory Lymphedema, not elsewhere classified Lymphedema, not elsewhere classified [facility] 09/14/2023 Care Team Organization Name Specialty Phone Email Start Date End [facility] 03/20/2025 [facility] 02/22 [facility] 0 02/20/2024 05/21/2025 [facility] 09/14/2023 01/23/2025 [facility] 09/14/2023 10/14/2023
--- OUTSIDE RECORDS SUMMARY | 2025-06-05 15:19 | XMS_ITS | Clinical Summary ---
Author Organization [facility] Address [address] [place] [address] Care Team Providers Care Manager Sales Support Name Role Phone Chaparro Mallory MD Primary Care Provider Allergies Active Allergy Reactions Criticality Noted Date [...] regurgitation 10/27/2016 Atrial fibrillation 07/06/2016 Atherosclerosis of [place] co ronary artery of [place] heart without angina pectoris 07/06/2016 Shortness of [...] 76 09/06/2024 1:14 PM EDT Temperature 36 C (96.8 F) 04/06/2022 4:02 PM EDT Respiratory Rate 16 [...] 1-dose 75+ series) 2016 Influenza Vaccine (#1) 2025 Hepatitis B Vaccines Aged Out No long er eligible based on patient's age to complete this topic RSV Ped < 20 months Aged Out No longe r eligible based on patient's age to complete this topic Advance Directives For more information, please contact: [phone] Latest Code Status on File Code Status [...] way: discussion with patient . Care Teams Manager Sales Support Relationship Specialty Start Date End Date Chaparro Mallory MD [address] [place] [address] PCP - General Internal Medicine 09/13/14
--- OUTSIDE RECORDS SUMMARY | 2025-06-05 15:19 | XMS_ITS | Clinical Summary ---
Author Organization [facility] Address [address] [place] [address] Care Team Providers Care Rn Plastic Surgery Name Role Phone Unknown Primary Care Provider [phone] Chaparro Mallory MD Unavailable [phone] Allergies Active Allergy Reactions Criticality Noted Date Comments Clindamycin/Lincomycin Swelling Medium 09/13/2014 Medications atorvastatin (LIPITOR) 40 MG tablet Take 40 [...] = 0.6 oz pur e alcohol) Comments No Sex and Gender Information Value Date Recorded Sex Assigned at Not on file Legal Sex Female 4:55 PM EST Gender Identity Not on file Sexual Orientation Not on file Last Filed Vital Signs Vital Sign Reading Time Taken Comments Blood Pressure 190/63 01/03/2021 5:29 PM EST Pulse 70 01/03/2021 5:22 PM EST Temperature 36.7 C (98 F) 01/03/2021 5:22 PM EST Respiratory Rate 16 [...] Patients (1 - 1-dose 75+ series) 2016 COVID-19 Vaccine (4 - 2023-2 5 season) 2024 11/04/2021, 12/25/2020, 12/04/2020 Influenza Vaccine 06/07/2025 Hepatitis B Vaccines Aged Out No long [...] compression garments, skin care, and exercise routine. Insurance [facility] MEDICARE [facility] MEDIC[facility] Member Subscriber Plan / Payer ( fective 2020-Present) Name:Khadijah James Relation to Subscriber:Self Name:Khadijah James Payer ID:[id number] (NA) Type:Not on file Address: [place] [phone] [employer] Care Teams Rn Plastic Surgery Relationship Specialty Start Date End Date Unknown Unknow Provider Address PCP - General 12/09/20 Chaparro Mallory MD [address] [place], [place] [address] PCP - APNCT [employer] Attributed 11/07/22
--- OUTSIDE RECORDS SUMMARY | 2025-06-05 15:19 | XMS_ITS | Clinical Summary ---
Author Organization [facility] Instructional Support Assistant [place] Address [address] [place] [address] Phone Care Team Providers Care Butt Sawyer Name Role Phone Chaparro Mallory MD Primary Care Provider [phone] Allergies Active Allergy Reactions Criticality Noted Date [...] (BMI) of 40.0 to 44.9 in adult ([facility] V24, [facility] V28) 08/30/2017 WHEELER (dyspnea on exertion) 02/23/2017 Non-rheumatic mitral regurgitation 10/27/2016 Atherosclerosis of [place] ronary artery of [place] heart without angina pectoris 07/06/2016 Shortness of breath 07/06/2016 Abnormal EKG 03/16/2016 Bilateral leg edema 03/16/2016 Dyspnea 03/16/2016 Essential hypertension, benign 03/16/2016 Hyperlipemia 03/16/2016 Obesity 03/16/2016 Persistent atrial fibrillation ([facility] V24, [facility] V28) 03/16/2016 Surgical History Surgery Date Site/Laterality Comments SECTION PROCEDURE: SECTION DILATION AND CURETTAGE OF UTERUS 09/06/2018 N/A PROCEDURE:DILATION AND CURETTAGE OF UTERUS;COMMENT:Procedure: D&C; Surgeon: Olu King MD; Location: [facility]; Service: Gynecology; Laterality: N/A; Medical History Medical History Date Comments Hypertension DX:Hypertension Environmental allergies DX:Envir onmental allergies Abnormal ECG DX:Abnormal ECG Hyperlipidemia DX:Hyperlipidemi a Atrial fibrillation ([facility] V24, [facility] V28) 03/2016 DX:Atrial fibrillation ([facility]);COMMENT:new; on AC by PCP; 3 mg daily [...] Care Team (Late st Contact Info) Description 08/22/2025 2:15 PM EDT Ancillary Procedure [facility] [place] [address] [facility] [address] [place] [address] 08/22/2025 3:30 PM EDT [facility] Visit [facility] [place] [address] [facility] [address] [place] [phone] Jose Antonio Coyle MD [address] [place] [address] Health Maintenance Due Date Last Done Comments DTaP,Tdap,and Td Vaccines (1 - Tdap) 1960 Pneumococcal Vaccine: 50+ Years (1 of 1 - PCV) 1991 Zoster Vaccines (1 of 2) 1991 RSV Immunization Adult Patients (1 - 1-dose 75+ series) 2016 Falls Risk Assessment 10/10/2022 Medicare Annual Wellness Visit 10/10/2022 Osteoporosis Screening (Bone Density Screening) 10/10/2022 Social Influencers of Health Screening 10/10/2022 Hypertension/CHF/CAD Annual BMP Blood Test 10/14/2022 02/13/2021, 09/07/2018, 09/06/2018, Additional history exists COVID-19 Vaccine ( - season) 2024 Depression Screening 11/07/2024 Influenza Vaccine (#1) 2025 Cholesterol Screening (Lipid Panel) 10/01/2025 10/01/2020 HIB [...] age to complete this topic Meningococcal B Vaccine Aged Out No l onger eligible based on patient's age to complete [...] or Most Recently Relevant to Health Maintenance Insurance [employer] MEDICARE Care Teams Butt Sawyer Relationship Specialty Start Date End Date Chaparro Mallory MD [address] [facility] [address] [place] [phone] PCP - General Internal Medicine 09/13/14
== END 2025-06-05 15:00 | disposition home or self-care (01) ==
LOC: HO.HKAE 14:38
PROVIDERS: PCP Internal Medicine; Visit Provider Internal Medicine Hypertension Specialist
DX: I12.9 Hypertensive chronic kidney disease with stage 1 through stage 4 chronic kidney disease, or unspecified chronic kidney disease (principal); N18.9 Chronic kidney disease, unspecified
CPT/HCPCS: 99214

== ENCOUNTER → 2025-06-05 14:38 | Outpatient (BNVA) | payer MEDICARE, SELFPAY | PROVIDERS: PCP Internal Medicine; Visit Provider Internal Medicine Hypertension Specialist | DX: I12.9 Hypertensive chronic kidney disease with stage 1 through stage 4 chronic kidney disease, or unspecified chronic kidney disease (principal); N18.9 Chronic kidney disease, unspecified; Z79.899 Other long term (current) drug therapy | CPT/HCPCS: 99212 ==

== ENCOUNTER 2025-10-16 14:42 | Outpatient (AMB) | payer MEDICARE, SELFPAY ==
--- OUTSIDE RECORDS SUMMARY | 2024-09-06 12:00 | XMS_ITS | Encounter Summary ---
Author Organization [facility] [place] [address] Care Team Providers Care Heel Seam Rubber Name Role Phone Chaparro Mallory MD Primary Care Provider [phone] Encounter Details Date Type Department Care Team (Late st Contact Info) Description 09/06/2024 1:00 PM EDT Hospital Encounter TH HISTORIC ENCOUNTERS [facility]AST[facility] CONVERSION ONLY Jose Antonio Coyle MD [address] [facility] [address] [place] [address] Social History Tobacco Use Types Packs/Day Years Used Date Smoking Tobacco: Never Passive Smoke Exposure: Never Smokeless Tobacco: Never Alcohol Use Standard Drinks/Week Comments No 0 (1 standard drink = 0.6 oz pur e alcohol) Comments Unknown Sex and Gender Information Value Date Recorded Sex Assigned at Not on file Legal Sex Female 1:02 AM EST Gender Identity Not on file Sexual Orientation Not on file documented as of this encounter Last Filed Vital Signs Vital Sign Reading Time Taken Comments Blood Pressure 144/76 09/06/2024 1:14 PM EDT Pulse 76 09/06/2024 1:14 PM EDT Temperature - - Respiratory Rate - - Oxygen Saturation - - Inhaled Oxygen Concentration - - Weight 112 kg (246 lb) 03/26/2024 3:15 PM EDT Height 160 cm (5' 3 ) 03/26/2024 3:15 PM EDT Body Mass Index 43.58 03/26/2024 3:15 PM EDT documented in this encounter Progress Notes * Jose Antonio Coyle MD - 09/06/2024 1:00 PM EDT Images from the original note were not included. Progress Notes by Jose Antonio Coyle MD at 09/06/2024 1:00 PM Author: Jose Antonio Coyle MD Service: -- Author Type: Physician Filed: 09/06/2024 1:49 PM Encounter Date: 09/06/2024 Status: Signed Slag Motor Operator: Jose Antonio Coyle MD (Physician) Cardiology Attending Outpatient Progress Note-09/06/2024 [facility] Aerial Survey Technician-Leonides Patient Name:Khadijah James Patient : 1940 Referring MD:Chaparro Mallory MD Interval History: The patient is a 84 y.o. female who was seen today for follow up of her chronic A-fib and presumed coronary disease with plaque noted on prior CAT scan. I saw her last in March and she had been on high-dose Lasix with 80 mg daily and metolazone was added at that time. Since then, she has had her metolazone stopped due to hypokalemia and is now on a lower dose of Lasix, taking only 60 mg once daily.This medicine list that was printed is not correct and we will try to amend that. She is now wearing some compression stockings for her legs which seems to be helping a little bit. She refused to get weighed today. She has not had chest discomfort or any change in her mild exertional shortness of breath. Her activity level remains extremely low. She is on anticoagulant with some easy bruising issue but no bleeding problems at all. Physical exam is essentially unchanged. Blood pressure is slightly elevated. EKG was deferred. Options were discussed and for now she will remain on Lasix at 60 mg daily and continue her other cardiac meds which include statin and rate control meds of diltiazem and metoprolol. She also will continue on anticoagulant indefinitely in light of her chronic A-fib. We did talk about the etiology of her leg edema which I think is multifactorial and related to saltin her diet, inactivity, morbid obesity as well as her chronic A-fib. I have asked her to try to eat less, move more and lose weight. She should stay away from salt completely. No change to her diuretic is recommended at this point. Follow-up with me will be scheduled for 6 months from now and I will do an echocardiogram on same day and see her shortly thereafter. We will also obtain and review her most recent labs. Cardiac Issues: Atrial Fibrillation-chronic (I48.1) with High CHADS score-The patient has persistent/permanent atrial fibrillation. Long-term rate control and anticoagulation are recommended, as with any [id number] score of 2 or more.The patient remains asymptomatic at present and will be followed empirically and remain on the same medicines for now. She is on warfarin for anticoagulation. I will plan to repeat her echocardiogram next year in the spring time and see her shortly after. ?? [id number] patient has presumed CAD by risk equivalents (calcified atherosclerotic aortic plaque on CT scan) and is asymptomatic at present. There are no symptoms of angina, arrhythmia or decompensated heart failure. There are no limiting symptoms with activity. Statin therapy is indicated and will be continued. Regular aerobic exercise and low salt/low cholesterol diet are advised.?? Nuclear stress testing done previously showed preserved LV function with no significant ischemia. ?? Hypertension (Essential) with risk equivalents for CAD (I10)- The patients blood pressure is now well treated on the current regimen of medicines. Risk factors for CV disease were reviewed. The patient will be followed with a plan to achieve a goal BP of under 130/80. ?? Hyperlipidemia+ presumed CAD (E78.0)-Appropriate adjunct faculty for medical terminology diet and regular exercise are advised. We will obtain and review her most recent lipids. ?? Chronic Leg Edema-on furosemide only (R60.0)- The patient has chronic leg edema that is unchanged and she will continue on 60 mg of Lasix daily. Jose Antonio Coyle MD [facility] 09/06/2024 1:43 PM Office [phone] Pager [phone] Current Outpatient Medications Medication Sig Dispense Refill ? atorvastatin (LIPITOR) tablet 40 mg 1 tablet (40 mg total) daily. 0 ? dilTIAZem (TIAZAC) 240 MG 24 hr capsule Take 1 capsule (240 mg total) by mouth daily. ? furosemide (LASIX) 20 MG tablet Take 3 tablets (60 mg total) by mouth 2 (two) times a day. ? metoprolol tartrate (LOPRESSOR) 50 MG tablet 0.5 tablets (25 mg total) 2 (two) times a day. 0 ? olmesartan (BENICAR) tablet 40 mg Take 1 tablet (40 mg total) by mouth daily. ? warfarin (COUMADIN) 2 MG tablet Take 1 tablet (2 mg total) by mouth daily. ? senna (SENOKOT) 8.6 MG tablet Take 1 tablet by mouth daily. 30 tablet 0 No current facility-administered medications for this visit. Allergies Allergen Reactions ? Clindamycin/Lincomycin Swelling VS BP 144/76 Pulse 76 SpO2 98% Today's PE and ROS Complete 12 point review of systems was completed and is negative as per HPI. Specifically reviewedissues include -no diarrhea, no weight gain, no rash, no neck pain, no headache, no fevers, no cough, no claudication, no bleeding, and no vision changes. Physical Exam Gen-no distress and well appearing Eyes-normal conjuctiva/lids; no xanthalasma E/N/T-normal teeth/gums/mucosa Neck-normal JVP, no carotid bruit, no obvious goiter Lungs-normal air movement/respiratory effort, no wheeze, no crackles, no rhonchi Cardiac-irregular rate and rhythm, 2/6 systolic murmur, no gallop, no rub Abdomen-NABS, no significant tenderness or mass Musculoskeletal-grossly normal Ext-1-2+ bilateral leg edema, grossly normal pulses Skin-no rash/stasis Neuro-awake/alert EKG today: No results found for this or any previous visit (from the past 168 hour(s)). Past Medical History: Diagnosis Date ? Abnormal ECG ? Arthritis ? Atrial fibrillation (HCC) 03/2016 new; on AC by PCP; 3 mg daily ? Dyspnea ? Environmental allergies ? Hx of cardiovascular stress test 2015 nl mibi ? Hx of echocardiogram 10/2016 nl ef; diast dysfxn, mild to mod MR ? Hyperlipidemia ? Hypertension ? Mitral regurgitation 10/2016 mild to mod ? Obesity Past Surgical History: Procedure Laterality Date ? SECTION ? DILATION AND CURETTAGE OF UTERUS N/A 09/06/2018 Procedure: D&C; Surgeon: Olu King MD; Location: [facility]; Service: Gynecology; Laterality: N/A; Social History Socioeconomic History ? Marital status: Spouse name: Not on file ? Number of children: Not on file ? Years of education: Not on file ? Highest education level: Not on file Occupational History ? Not on file Tobacco Use ? Smoking status: Never ? Smokeless tobacco: Never Vaping Use ? Vaping Use: Never used Substance and Sexual Activity ? Alcohol use: No ? Drug use: No ? Sexual activity: Not Currently Other Topics Concern ? Not on file Social History Narrative ? Not on file Social Determinants of Health Financial Resource Strain: Not on file Food Insecurity: Not on file Transportation Needs: Not on file Social Connections: Not on file Housing Stability: Not on file Family History Problem Relation Age of Onset ? Heart disease Father ? Hypertension Father Medical decision making for this established, stable patient includes: Problems listed above with additional workup planned, as outlined above, if needed. Data reviewed-last EKG, prior labs, prior imaging and old records (if available). Risk evaluated for problems and management options. documented in this encounter Plan of Treatment Upcoming Encounters Date Type Department Care Team (Late st Contact Info) Description 08/25/2026 2:30 PM EDT Office Visit [facility] [address] [place] [address] [address] [place] [address] Jose Antonio Coyle MD [address] [facility] [address] [place] [address] documented as of this encounter Visit Diagnoses Not on filedocumented in this encounter Care Teams Heel Seam Rubber Relationship Specialty Start Date End Date Chaparro Mallory MD [address] [place] [address] PCP - General Internal Medicine 09/13/14 documented as of this encounter
[2025-10-16 14:46] VITALS: BP 160/86; PULSE 68; O2SAT 97
--- NOTE | 2025-10-16 14:46 | HO.NEPHOV_ITS ---
Vital Signs 10/16/25 14:46 10/16/25 15:05 Height 5 ft 3 in BP 160/86 H 140/70 H Blood Pressure Location Lt radial Lt brachial Position Sitting Sitting Pulse 68 Pulse Source Pulse Oximeter Pulse Oximetry (%) 97 Oxygen Delivery Method Room Air Intake Visit Reasons: 4mon follow-up Test And Balance Engineer Required: No Accompanied by: Spouse Allergies clindamycin Allergy (Verified 10/16/25 14:50) Hives Medication List - Last Reconciled 10/16/25 by Ramez Bocanegra MD atorvastatin 40 mg PO DAILY diltiazem HCl ER (Tiadylt ER) 240 mg PO DAILY docusate sodium (Colace) 100 mg PO DAILY PRN furosemide 80 mg (4 x 20 mg) PO DAILY 90 days metoprolol tartrate 25 mg PO BID olmesartan 40 mg PO DAILY sennosides (senna) 8.6 mg PO BEDTIME PRN warfarin 2 mg PO DAILY warfarin mg PO HPI Comments Details: History of Present Illness The patient is an 85-year-old female presenting for a follow-up visit for chronic kidney disease and management of leg edema. She reports feeling the effects of her age with generalized aches. She is atrial fibrillation for which she is on metoprolol and Cardizem. No clinical history of congestive heart failure as per patient. She has chronic lymphedema and has been no improvement with the diuretics. She denies any shortness of breath at rest. No nausea or vomiting. No urinary The patient has ongoing edema, which particularly bothers her in the feet and toes. She notes that the swelling exacerbates her arthritic knee pain. The patient is currently taking furosemide 80 mg daily, administered as four 20 mg tablets. Regarding her chronic kidney disease, recent bloodwork from October 14 showed a stable serum creatinine level, unchanged from May. Her potassium level is normal, and she does not require potassium supplementation. She recently saw her folder stitcher operator, Dr. Coyle, . Results - Labs: - Serum creatinine on October 14 was 1.5 mg/dL, stable and unchanged from May. - Serum potassium is normal. - Tests and Diagnostics: - Echocardiogram (prior): Results reviewed by folder stitcher operator and were reported as good. [facility] Medical History Bilateral knee pain Sinusitis Low blood potassium Secondary hypercoagulable state Lymphedema Atrial fibrillation Hyperlipidemia Hypertension Surgical History Hx of section S/P D&C (status post dilation and curettage) Family History Father Hypertension Social History Alcohol intake: never Patient Tobacco Use Status: Never used Tobacco Physical Exam Exam Exam: Physical Exam General: Awake. Comfortable. HENT: Neck supple. Mucosa moist. Pulmonary: Lungs aeration equal. No rales. Cardiology: Heart S1-S2 heard. No gallop. Abdomen: Soft. Non tender. Bowel sounds normal. Neurologic: No involuntary movements. No myoclonus. Extremities: Swelling in the feet and toes - unchanged - chronic . No rash. Vital Signs: Last Vital Signs Pulse 68 10/16/25 14:46 BP 140/70 H 10/16/25 15:05 Pulse Ox 97 10/16/25 14:46 Oxygen Delivery Method Room Air 10/16/25 14:46 Assessment & Plan Assessment & Plan (1) Hypertension: Code(s): I10 - Essential (primary) hypertension Category: Medical (2) CKD (chronic kidney disease): Code(s): N18.9 - Chronic kidney disease, unspecified Category: Medical Plan Plan 1. Chronic Kidney Disease - The patient's kidney function is stable, as her creatinine has not worsened since her last labs in May. - Her potassium level is good, and she does not need potassium supplements. - Given the stability, the plan is to continue current management and extend the follow-up interval. - A follow-up visit is scheduled for 6 months from now, in April. 2. Edema Primarily has lymphedema - The patient continues to experience edema in her feet and toes despite treatment with furosemide 80 mg daily. - She was counseled on the importance of limiting overall fluid intake to manage fluid retention, including beverages like water, tea, and juice. - No changes will be made to her furosemide prescription at this time. Patient Instructions - Your kidney function is stable, which is very good news. We will continue to monitor it. - Continue taking your water pill, furosemide 80 mg (four of the small 20 mg pills), every day. - To help with the swelling in your feet, try to limit the total amount of liquids you drink each day. This includes water, tea, juice, and soda. - It is okay to eat bananas and drink a small glass of cranberry juice. - Your potassium level is normal, so you do not need to take any potassium pills. - Please schedule a follow-up appointment to see me in 6 months, around April. Orders: Orders Basic Metabolic Panel 6 Months I10 - Essential (primary) hypertension, N18.9 - Chronic kidney disease, unspecified Complete Blood Count no Diff 6 Months I10 - Essential (primary) hypertension, N18.9 - Chronic kidney disease, unspecified Coding Level of Care Code Est Pt Level 4 (21666) Diagnoses Hypertension I10 CKD (chronic kidney disease) N18.9
[2025-10-16 15:05] VITALS: BP 140/70
--- OUTSIDE RECORDS SUMMARY | 2025-10-16 23:04 | XMS_ITS | Clinical Summary ---
Author Organization [facility] Address [address] [place] [address] Care Team Providers Care Esthetician Makeup Artist Name Role Phone Unknown Primary Care Provider [phone] Chaparro Mallory MD Unavailable [phone] Allergies Active Allergy Reactions Criticality Noted [...] Health Maintenance Due Date Last Done Comments Advance Care Planning 1941 DTaP/Tdap/Td Vaccines (1 - Tdap) 1960 Pneumococcal Vaccines 50+ (1 of 1 - PCV) 1991 Zoster (Shingles) Vaccine (1 of 2) 1991 DXA Bone Density (Females,Ages 65 and older) 2006 RSV Vaccine 50 years and older and Patients (1 - 1-dose 75+ series) 2016 Influenza Vaccine 06/07/2025 COVID-19 Vaccine (4 - 2024-2 6 season) 2025 11/04/2021, 12/25/2020, 12/04/2020 Hepatitis B Vaccines Aged [...] garments, skin care, and exercise routine. Insurance [facility] MEDICARE [facility] MEDICARE Member Subscriber Plan / Payer ( fective 2020-Present) Name:Khadijah James Relation to Subscriber:Self Name:Khadijah James Payer ID:[id number] (NAIC) Type:Not on file Address: [place] [phone] [employer] - [place] Care Teams Esthetician Makeup Artist Relationship Specialty Start Date End Date Unknown Unknow Provider Address PCP - General 12/09/20 Chaparro Mallory MD [address] [place] [address] PCP - APNCT [employer] Attributed 11/07/22
--- OUTSIDE RECORDS SUMMARY | 2025-10-16 23:04 | XMS_ITS | Clinical Summary ---
Author Organization [facility] Prior to 04/06/25 Address [address] [place] [address] Care Team Providers Care Township Supervisor Name Role Phone Chaparro Mallory MD Primary Care Provider [phone] Allergies Active Allergy Reactions Criticality Noted Date [...] regurgitation 10/27/2016 Atrial fibrillation 07/06/2016 Atherosclerosis of [place] co ronary artery of [place] heart without angina pectoris 07/06/2016 Shortness of breath dyspnea 07/06/2016 Persistent atrial fibrillation 03/16/2016 Hyperlipemia 03/16/2016 Essential hypertension, benign 03/16/2016 Abnormal EKG 03/16/2016 Dyspnea 03/16/2016 Obesity 03/16/2016 Bilateral leg edema 03/16/2016 Resolved Problems Problem Noted Date Diagnosed Date Resolved Date V-tach 09/05/2018 09/07/2018 Acute blood loss anemia 09/04/2018 1111/2017 Symptomatic anemia 09/04/2018 8 Family History Medical [...] Last Done Comments COVID-19 Vaccine (#1) 02/10/1941 Depression Screening 1953 BMI Counseling 1959 Preventative Health Evaluation 1959 DTap / Tdap / Td (1 - Tdap) 1960 Shingrix-Zoster Vaccine (1 of 2) 1991 Fall Risk Assessment 2006 Osteoporosis Screening (DEXA Scan) 2006 Pneumococcal Vaccine (1 of 1 - PCV) 2006 RSV Adult > 60+ Yrs or Pregn ant (1 - 1-dose 75+ series) 2016 Influenza Vaccine (#1) 2025 Hepatitis B Vaccines Aged Out No long er eligible based on patient's age to complete this topic RSV Ped < 20 months Aged Out No longe r eligible based on patient's age to complete this topic Advance Directives For more information, please contact: [phone] Latest Code Status on File Code Status [...] way: discussion with patient . Care Teams Township Supervisor Relationship Specialty Start Date End Date Chaparro Mallory MD [address] [place] [address] PCP - General Internal Medicine 09/13/14
--- OUTSIDE RECORDS SUMMARY | 2025-10-16 23:04 | XMS_ITS | Clinical Summary ---
Author Organization 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 Name Role Phone Chaparro Mallory MD Primary Care Provider [phone] Allergies Active Allergy Reactions Criticality Noted Date [...] 02/23/2017 Non-rheumatic mitral regurgitation 10/27/2016 Atherosclerosis of [place] co ronary artery of [place] heart without angina pectoris 07/06/2016 Shortness of breath 07/06/2016 Abnormal EKG 03/16/2016 Bilateral leg edema 03/16/2016 Dyspnea 03/16/2016 Essential hypertension, benign 03/16/2016 Hyperlipemia 03/16/2016 Obesity 03/16/2016 Persistent atrial fibrillation 03/16/2016 Encounters Date Type Department Care Team Description 08/22/2025 3:30 PM EDT Office Visit [facility] [place] [facility] [address] [facility] [address] [place] [address] Jose Antonio Coyle MD Essential hypertension, benign (Primary Dx); Pure hypercholesterolemia; Abnormal EKG; Chronic atrial fibrillation (CMS/HCC V24, CMS/HCC V28); Bilateral leg edema 08/22/2025 2:15 PM EDT Ancillary Procedure [facility] [address] [phone] Localized edema from Last 3 Months Surgical History Surgery Date Site/Laterality Comments SECTION PROCEDURE: SECTION DILATION AND CURETTAGE OF UTERUS 09/06/2018 N/A PROCEDURE:DILATION AND CURETTAGE OF UTERUS;COMMENT:Procedure: D&C; Surgeon: Olu King MD; Location: [facility]; Service: Gynecology; Laterality: N/A; Medical History Medical History Date Comments Hypertension DX:Hypertension Environmental allergies DX:Envir onmental allergies Abnormal ECG DX:Abnormal ECG Hyperlipidemia DX:Hyperlipidemi a Atrial fibrillation (CMS/HCC V24, CMS/HCC V28) 03/2016 DX:Atrial fibrillation (HCC);COMMENT:new; on AC by PCP; 3 [...] Passive Smoke Exposure: Never Smokeless Tobacco: Never Tobacco Cessation:Counseling Given: [...] Sign Reading Time Taken Comments Blood Pressure 128/72 08/22/2025 3:18 PM EDT Pulse 77 08/22/2025 3:18 PM EDT Temperature - - Respiratory Rate - - Oxygen Saturation 97% 08/22/2025 3:18 PM EDT Inhaled Oxygen Concentration - - Weight 112 kg (246 lb) 03/26/2024 3:15 PM EDT Height 160 cm (5' 3 ) 03/26/2024 3:15 PM EDT Body Mass Index 43.58 03/26/2024 3:15 PM EDT Plan of Treatment Upcoming Encounters Date Type Department Care Team (Late st Contact Info) Description 08/25/2026 2:30 PM EDT Office Visit [facility] [place] [facility] [place] [address] [facility] [address] [place] [address] Jose Atnonio Coyle MD [address] [facility] [address] [place] [address] Health Maintenance Due Date Last Done Comments [...] 10/14/2022 02/13/2021, 09/07/2018, 09/06/2018, Additional history exists Depression Screening 11/07/2024 COVID-19 Vaccine ( season) 2025 11/04/2021, 12/25/2020, 12/04/2020 Influenza Vaccine (#1) 2025 Cholesterol Screening (Lipid [...] Procedure Name Priority Date/Time Associated Diagnosis Comments TRANSTHORACIC ECHOCARDIOGRAM (TTE) COMPLETE Routine 08/22/2025 2:53 PM EDT Localized edema ANNUAL BMP BLOOD TEST Routine 02/13/2021 LIPID PANEL Routine 10/01/2020 from Last 3 Months or Most Recently Relevant to Health Maintenance Results * TRANSTHORACIC ECHOCARDIOGRAM (TTE) COMPLETE (08/22/2025 2:53 PM EDT) Anatomical Region Laterality Modality Ultrasound Jose Antonio Coyle MD CV ECHO PROCEDURES Final Result * Annual BMP Blood Test (02/13/2021) Pathologist [facility] Annual BMP Blood Test abstracted Jv Provider HEALTH MAINTENANCE Final Result * (ABNORMAL) Lipid panel (10/01/2020) Pathologist [facility] LDL/HDL Ratio 3 <=5 Triglycerides 154(A) 0 - 150 mg/dL Cholesterol 127 0 - 200 mg/dL HDL 50 >=50 mg/dL LDL Cholesterol 53 0 - 100 mg/dL Blood Venous blood specimen / Unknown us Historical Provider LAB BLOOD ORDERABLES Krystal l Result from Last 3 Months or Most Recently Relevant to Health Maintenance Insurance [employer] MEDICARE Care Teams Tucking Machine Operator Relationship Specialty Start Date End Date Chaparro Mallory MD [address] [place] [id number] PCP - General Internal Medicine 09/13/14
== END 2025-10-16 15:07 | disposition home or self-care (01) ==
LOC: HO.HKAE 14:43
PROVIDERS: PCP Internal Medicine; Visit Provider Internal Medicine Hypertension Specialist
DX: I12.9 Hypertensive chronic kidney disease with stage 1 through stage 4 chronic kidney disease, or unspecified chronic kidney disease (principal); N18.9 Chronic kidney disease, unspecified
CPT/HCPCS: 99214

== ENCOUNTER → 2025-10-16 14:42 | Outpatient (BNVA) | payer MEDICARE, SELFPAY | PROVIDERS: PCP Internal Medicine; Visit Provider Internal Medicine Hypertension Specialist | DX: I10 Essential (primary) hypertension (principal); N18.9 Chronic kidney disease, unspecified; R60.9 Edema, unspecified | CPT/HCPCS: 99212 ==